=== PATIENT | male | born 1985 | race Caucasian/White ===

== ENCOUNTER 2016-10-10 10:59 | Inpatient (IN) | payer MEDICAID, OTHER ==
[~2016-10-10] VITALS: Ht 167.6 cm; Wt 45.2 kg
--- NOTE | 2016-10-10 14:42 | NUR ---
Nursing Note Admission S/O: Pt arrived via ambulance from [facility] in [place] at 1310 after he was placed on a 72 hour hold this morning. Pt uses "3 bowls" of THC daily. He denies using other drugs except prescription. He reports drinking less than 1 drink every 6 months. Friends report pt has not been eating or sleeping well. Pt states he has. Pt's weight is 99.6 lbs per unit scale. Pt is HIV positive, has a hx of seizures (at age 2-4 yo), hx of depression with a attempt at age age 15, & anxiety. Pt denies AH/VH, but has been talking & mumbling to himself. Pt has been running out into traffic yelling at people. He went to the neighbors last night, knocked on the door & stared at them. Pt brought into ED by friends. A: Pt has no insight into illness. He appears to be responding to internal stimuli. P: Provide supportive environment. Monitor medications & effects.
[2016-10-10] MEDS ORDERED: LORA10CA PO (16:07)
[2016-10-10] MEDS ORDERED: Benzocaine-Menthol Lozenge 2/Pkg PO PRN (16:35)
[2016-10-10] MEDS ORDERED: Magnesium Hydroxide 10 mL Oral Concentration PO PRN (16:35)
[2016-10-10] MEDS ORDERED: Alum-Mag Hydrox-Simeth 30 mL Suspension PO PRN (16:35)
[2016-10-10] MEDS ORDERED: HYDROcodone-APAP 5-325 mg Tablet PO PRN (16:40)
--- NOTE | 2016-10-10 19:57 | NUR ---
NURSING NOTE [id number] Mood: "good... I don't know why I'm here. I'm not crazy or anything." Affect: preoccupied, distracted, pleasant upon approach Behavior: pt. resting in bed at start of shift and asked this underwriter "am I allowed to come out? Can I leave this room? I don't know why I'm here." Reassurance provided. Pt. then seen sitting in the DR, visible on fringes of milieu, not interacting w/peers. He stated: "there are people downstairs here to visit me". When asked how he knew that he stated: "the same way I communicate everything: I heard it through the wind... spirits... but I'm not crazy". Thought processes: pt. denies AH/VH however is seen and heard speaking to unseen others in his room as well as in the middle of a conversation w/this underwriter. Pt. showing poor concentration. He is delusional and confused. He believes he has visitors waiting for him downstairs and reports he does not know why he was admitted and cannot remember the events that led to him being brought to the hospital. Denies SI/HI/depression/anxiety.
[2016-10-10] MEDS: EFAVIRENZ PO SCH (20:54)
[2016-10-10] MEDS: [UNRECOGNIZED DRUG - OTHER] PO SCH (20:54)
--- NOTE | 2016-10-11 06:46 | NUR ---
Nursing Note Autopsy Pathologist 11pm to 7am Pt asleep at start of shift. Awoke at 0230 requested a repeat of trazadone and ativan and went back to sleep for the duration of the shift. Monitored pt q 15 minutes for safety, location and accountability. Addendum: 10/11/16 at 0648 by LULU SETHI RN Pt did not take trazadone or ativan but slept the duration of the shift.
--- NOTE | 2016-10-11 11:16 | NUR ---
Nursing Dayshift Pt has remained out in the main area reading paperwork and took a phone call from his mother which he reported as "good". Pt denies any physical complaints & denies voices. He reports he is doing "okay". He wears dentures but does not have denture cream, eating a soft diet until denture cream becomes available for him to use. Taking medication as ordered. Addendum: 10/11/16 at 1142 by EUNICE OLIVAREZ RN Pt requested and received a change of clothing and a shower. He presents as pleasant and appreciative of care.
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
--- NOTE | 2016-10-11 18:43 | NUR ---
NURSING NOTE [id number] Mood: "good, thank you" Affect: distracted and confused at times, however concentration is much improved from evening prior, very polite and cooperative Behavior: visible in DR for much of the shift, interacting more w/select peers, his mother [place] from [place] come visit him this evening, along w/his brother and and pt. reports the visit went well. Pt. has been med compliant. Received PRN Ambien 5 mg @ HS. Thought processes: still appears to be responding to internal stimuli (seen muttering off and on to himself) but not as distracted as yesterday. He continues to deny AH/VH. Denies SI/HI/depression/anxiety. Continues to show poor insight into his condition and actions that brought him here.
[2016-10-11] MEDS: [UNRECOGNIZED DRUG - OTHER] PO SCH (20:49)
[2016-10-11] MEDS: EFAVIRENZ PO SCH (20:49)
--- NOTE | 2016-10-12 00:28 | NUR ---
Observations 1900 to 0700 Pt attended and participated in wrap up group. Pt ate a snack. Pt had several visitors. Pt is pleasant and cooperative. Pt was not observed responding to internal stimuli. Pt spent evening watching TV and interacting with peers appropriately. Pt maintained behavioral control and showed no signs of abnormal behavior. PT appeared asleep at 2100 and has remained asleep. Pt respirations were observed when asleep. Staff completed 15 min close observations as ordered.
[2016-10-12 10:23] VITALS: BP 125/87; PULSE 94
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
--- NOTE | 2016-10-12 13:26 | NUR ---
Nursing 7a-3p Pt pleasant, calm and cooperate with care. Reports feeling happy that he will get to discharge back to the care of his family tomorrow. He denies AVH, denies thoughts of harm to self or others. Clear speech and thought. He has been social and active on the unit. Eating all meals and taking medication as prescribed.
--- NOTE | 2016-10-12 15:26 | NUR ---
Obs Dayshift Pt is calm, co-operative, polite, positive. Pt does not appear to be responding to IS like he was the last two days. Engaging very well and appropriately w/ peers and staff. Pt is encouraging, forward thinking, and participating on the unit. Pt mom, brother and spouse visited last night, very positive and supportive. Good ADL's, Good meals
[2016-10-12] MEDS: [UNRECOGNIZED DRUG - OTHER] PO SCH (20:44)
[2016-10-12] MEDS: EFAVIRENZ PO SCH (20:44)
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
--- NOTE | 2016-10-12 23:36 | NUR ---
Observations 1900 to 0700 Pt attended and participated in wrap up group. Pt ate a snack. Pt had several visitors. Pt is pleasant and cooperative and social with peers with a bright affect. Pt maintained behavioral control and showed no signs of abnormal behavior. Pt appeared asleep at 2230. Pt respirations were observed when asleep. Staff completed 15 min close observations as ordered.
--- NOTE | 2016-10-13 02:30 | NUR ---
Nursing, NOC [id number] Patient noted to be sleeping at beginning of shift. At time of this note, he has not awakened; no prn requests thus far. Continue w/ Q15min safety and room checks.
[2016-10-13] MEDS ORDERED: OLAN5TAB PO (11:00)
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
--- NOTE | 2016-10-13 11:37 | DIS ---
[address] [address] DISCHARGE SUMMARY PATIENT: VANE FUNES : 1985 MR#: [id number] ADMIT: 10/10/2016 JOB ID: [id number] DIS: IDENTIFICATION: The patient is a 30-year-old, white male, currently living with his . He is on social security disability and lives has lived in the [facility] [place] for the past five years. He is originally from [place] and carries an active diagnosis of anxiety, chronic pain in the right hip, history depression with attempted suicide at age 15-16, HIV-positive, and also has a history of seizures and substance abuse. REASON FOR ADMISSION: Client presented for evaluation and treatment of psychotic symptoms. He was detained on a 72 hour involuntary treatment hold. SUMMARY OF PRESENT ILLNESS: Client with history of anxiety, chronic pain, depression, and HIV positive who for unclear reasons developed symptoms of psychosis. He states he smokes marijuana all day long approximately five bowls per day. For unclear reasons on October 09, 2016 he was walking outside confused, apparently responding to internal stimuli, and trying to flag down cars. He was yelling to other people and appeared to be responding to internal stimuli. He complained of poor sleep and appetite for several days and was admitted for stabilization and care. HOSPITAL COURSE: Client was admitted to our unit and was given a high degree of safety through the structure and active adult engagement he received here. We had him participate in one-to-one, unit, and group activities focused on normalizing his social milieu as well as helping him improve his coping skills. He participated well in all the above activities. His sleep began to normalize and he showed no signs of psychosis during his 72 hours here. Client was started on Zyprexa 10 mg daily. I talked with him about decreasing this to 5 mg a day for a month and then discontinuing this to see if this was simply an acute response to an intoxicant or some kind of acute stress response. I gave him directions on how to pursue more training improve his coping skills. He was very appreciative, polite, and engaged throughout his entire stay here. He showed no side effects to the Zyprexa and has had no symptoms of suicidal ideation or psychosis since his stay. The client is requesting discharge. I am dropping the hold and having him follow up with his primary care. MENTAL STATUS EXAMINATION: Client neatly dressed. Good eye contact. Behavior was calm. Attitude was cooperative and pleasant. Speech: Normal rate and rhythm. Mood: Euthymic. Affect: Congruent. Normal intensity. Thought process: Client is able to relate a coherent history. He continues to have significant memory gaps around the period of time he was delusional and responding to internal stimuli. Thought content significant for future planning, how to take care of himself, and how to follow up for his mental and physical health. Denied auditory hallucinations or suicidal ideations. Insight and judgment appropriate. Impulse control highly contained. Reality testing intact. Competence to handle current stressors appears to be at baseline. DISCHARGE DIAGNOSIS: [place] I: 1. Psychosis, unspecified. 2. Depression, unspecified. [place] II: None. Ell[place] III: 1. HIV positive. Well controlled. Viral load on 06/14/2016 undetectable. 2. Chronic pain. 3. History of seizure. Last know episode when he was 3. [place] IV: Moderate. [place] V: Current Global Assessment of Functioning equal to 45. DISCHARGE MEDICATIONS: Client will continue on antiviral medication Atripla. Will continue on Zyprexa at 5 mg h.s. for one month, then discontinue. ACTIVITY AND DIET: Recommend client refrain from recreational drugs and alcohol while taking psychiatric medications. Recommend he continue on current doses and not change unless under the supervision of a physician. DISCHARGE PLAN: Client to follow up with [facility], Dr. Mccauley. Our child welfare caseworker, PAULY, to schedule within the next two weeks. CONDITION ON DISCHARGE: Good. PROGNOSIS: Good.
--- NOTE | 2016-10-13 13:47 | NUR ---
[id number]. nurs. Discharge note. Pt reporting readiness for discharge home and verbalizing understanding of out pt med plan and out pt apt with outpt care provider tomorrow. Pt completed safety plan and organized for discharge, social with peer in . Pt reporting some anxiety re discharge but no other concerns. Pt reporting no hallucinations or altered thinking. Pt with bright affect looking forward to wking on plans with spouse and reporting support from a number of family members. Pt's prescription faxed to [facility]. Pt discharged home with mother at [phone].
--- NOTE | 2016-10-13 15:34 | NUR ---
Case Management/Counselor: S/O: Patient slept 6.5 hours last night per staff. He denies S/I and H/I. He also denies auditory and visual hallucinations. Out-patient appointment: Dr. Danni Joya, [facility], 10/14/16 at 11:30am. This video games storywriter spoke with Dr. Joya's coat joiner lockstitch and requested patient gets a referral to the [facility] department. Dr. Joya's coat joiner lockstitch put in the request for the referral. A: Patient is cooperative, hopeful. P: Follow care plan, coordinate out-patient providers.
== END 2016-10-13 12:36 | disposition home or self-care (01) | DRG 976 ==
LOC: MHC 13:35
PROVIDERS: ADMIT Psychiatry & Neurology Psychiatry; ATTEND Psychiatry & Neurology Psychiatry
DX: F28 Other psychotic disorder not due to a substance or known physiological condition (principal); B20 Human immunodeficiency virus [HIV] disease; F32.9 Major depressive disorder, single episode, unspecified; M25.551 Pain in right hip; F17.200 Nicotine dependence, unspecified, uncomplicated; G89.4 Chronic pain syndrome; Z96.641 Presence of right artificial hip joint; Z91.5 Personal history of self-harm